=== PATIENT | male | born 1980 | race Two or more races ===

== ENCOUNTER 2020-11-14 12:08 | Emergency (ER) | payer SELFPAY ==
[~2020-11-14] VITALS: Ht 157.5 cm; Wt 68.0 kg
[2020-11-14 14:03] VITALS: BP 127/80
[2020-11-14 14:59] LABS: BASO # 0.1 x10^3/uL (0.0-0.2); BASO % 1 % (0-3); EOS # 0.1 x10^3/uL (0.0-0.7); EOS % 2 % (0-3); HEMATOCRIT 46.1 % (39.0-53.0); HEMOGLOBIN 16.1 g/dL (13.0-17.5); LYMPH # 1.9 x10^3/uL (1.0-4.8); LYMPH % 24 % (24-48); MEAN CORPUSCULAR HEMOGLOBIN 30 pg (25-35); MEAN CORPUSCULAR HGB CONC 35 g/dL (31-37); MEAN CORPUSCULAR VOLUME 87 fL (79-100); MONO # 0.8 x10^3/uL (0.0-1.1); MONO % 10 % (0-9); NEUT # 4.9 x10^3/uL (1.8-7.7); NEUT % 63 % (31-73); PLATELET COUNT 373 x10^3/uL (140-400); RED BLOOD COUNT 5.33 x10^6/uL (4.30-5.70); RED CELL DISTRIBUTION WIDTH 13.6 % (11.5-14.5); WHITE BLOOD COUNT 7.8 x10^3/uL (4.0-11.0)
[2020-11-14 15:05] LABS: CREATININE 0.8 mg/dL (0.7-1.3); GFR 106.5; POTASSIUM 4.3 mmol/L (3.5-5.1)
[2020-11-14 15:10] LABS: ALBUMIN 4.3 g/dL (3.4-5.0); TOTAL BILIRUBIN 0.7 mg/dL (0.2-1.0); TOTAL PROTEIN 8.6 g/dL (6.4-8.2)
--- NOTE | 2020-11-14 16:11 | PHYS DOC ---
Past Medical History Past Medical History: No Pertinent History (LUDWIG BOLTON APRN) Past Surgical History: No Surgical History (LUDWIG BOLTON APRN) Smoking Status: Never Smoker Alcohol Use: None (LUDWIG BOLTON APRN) General Adult EDM: Chief Complaint: WEAKNESS/GENERALIZED HPI: HPI: Patient is a 40 year old male with no significant medical history who presents to the ED today requesting lab work. Patient states he has had generalized weakness and fatigue for 2 weeks. He states he does a job where he wakes up at 3 AM every morning and typically gets tired and feels weak by the end of the day. Denies any fever, coughing, congestion, chest pain, shortness of breath, headache. He also reports stress at work Patient is Micronesian-speaking and interpretation is provided by the language line. (LUDWIG BOLTON APRN) Review of Systems: Review of Systems: Constitutional: Denies fever or chills. [] Eyes: Denies change in visual acuity. [] HENT: Denies nasal congestion or sore throat. [] Respiratory: Denies cough or shortness of breath. [] Cardiovascular: Denies chest pain or edema. [] GI: Denies abdominal pain, nausea, vomiting, bloody stools or diarrhea. [] : Denies dysuria. [] Musculoskeletal: Denies back pain or joint pain. [] Integument: Denies rash. [] Neurologic: Reports generalized weakness and fatigue. Denies headache, focal weakness or sensory changes. [] Psychiatric: Denies depression or anxiety. [] (LUDWIG BOLTON APRN) Heart Score: Risk Factors: Risk Factors: DM, Current or recent (<one month) smoker, HTN, HLP, family h istory of CAD, obesity. Risk Scores: Score 0 - 3: 2.5% MACE over next 6 weeks - Discharge Home Score 4 - 6: 20.3% MACE over next 6 weeks - Admit for Clinical Observation Score 7 - 10: 72.7% MACE over next 6 weeks - Early Invasive Strategies (LUDWIG BOLTON APRN) Allergies: Allergies: Allergies Coded Allergies Type Severity Reaction Last Updated Verified No Known Drug Allergies 11/14/20 No (LUDWIG BOLTON APRN) Physical Exam: PE: Constitutional: Well developed, well nourished, no acute distress, non-toxic appearance. [] HENT: Normocephalic, atraumatic, bilateral external ears normal, oropharynx moist, no oral exudates, nose normal. [] Eyes: PERRLA, EOMI, conjunctiva normal, no discharge. [] Neck: Normal range of motion, no tenderness, supple, no stridor. [] Cardiovascular:Heart rate regular rhythm, no murmur [] Lungs & Thorax: Bilateral breath sounds clear to auscultation [] Abdomen: Bowel sounds normal, soft, no tenderness, no masses, no pulsatile masses. [] Skin: Warm, dry, no erythema, no rash. [] Back: No tenderness, no CVA tenderness. [] Extremities: No tenderness, no cyanosis, no clubbing, ROM intact, no edema. [] Neurologic: Alert and oriented X 3, normal motor function, normal sensory fun ction, no focal deficits noted. Cranial nerves II through XII intact Psychologic: Affect normal, judgement normal, mood normal. [] (LUDWIG BOLTON APRN) Current Patient Data: Labs: Laboratory Tests Test 11/14/20 14:35 White Blood Count 7.8 x10^3/uL (4.0-11.0) Red Blood Count 5.33 x10^6/uL (4.30-5.70) Hemoglobin 16.1 g/dL (13.0-17.5) Hematocrit 46.1 % (39.0-53.0) Mean Corpuscular Volume 87 fL (79-100) Mean Corpuscular Hemoglobin 30 pg (25-35) Mean Corpuscular Hemoglobin Concent 35 g/dL (31-37) Red Cell Distribution Width 13.6 % (11.5-14.5) Platelet Count 373 x10^3/uL (140-400) Neutrophils (%) (Auto) 63 % (31-73) Lymphocytes (%) (Auto) 24 % (24-48) Monocytes (%) (Auto) 10 % (0-9) H Eosinophils (%) (Auto) 2 % (0-3) Basophils (%) (Auto) 1 % (0-3) Neutrophils # (Auto) 4.9 x10^3/uL (1.8-7.7) Lymphocytes # (Auto) 1.9 x10^3/uL (1.0-4.8) Monocytes # (Auto) 0.8 x10^3/uL (0.0-1.1) Eosinophils # (Auto) 0.1 x10^3/uL (0.0-0.7) Basophils # (Auto) 0.1 x10^3/uL (0.0-0.2) Sodium Level 139 mmol/L (136-145) Potassium Level 4.3 mmol/L (3.5-5.1) Chloride Level 102 mmol/L (98-107) Carbon Dioxide Level 29 mmol/L (21-32) Anion Gap 8 (6-14) Blood Urea Nitrogen 12 mg/dL (8-26) Creatinine 0.8 mg/dL (0.7-1.3) Estimated GFR (Cockcroft-Gault) 106.5 BUN/Creatinine Ratio 15 (6-20) Glucose Level 92 mg/dL (70-99) Calcium Level 9.0 mg/dL (8.5-10.1) Total Bilirubin 0.7 mg/dL (0.2-1.0) Aspartate Amino Transferase (AST) 33 U/L (15-37) Alanine Aminotransferase (ALT) 77 U/L (16-63) H Alkaline Phosphatase 118 U/L (46-116) H Total Protein 8.6 g/dL (6.4-8.2) H Albumin 4.3 g/dL (3.4-5.0) Albumin/Globulin Ratio 1.0 (1.0-1.7) Laboratory Tests 11/14/20 14:35 Laboratory Tests 11/14/20 14:35 Vital Signs: Vital Signs Date Time Temp Pulse Resp B/P (MAP) Pulse Ox O2 Delivery O2 Flow Rate FiO2 11/14/20 14:03 98.5 64 127/80 (96) 100 Room Air 98.5 11/14/20 13:10 18 (LUDWIG BOLTON APRN) EKG: EKG: [] (LUDWIG BOLTON APRN) Radiology/Procedures: Radiology/Procedures: [] (LUDWIG BOLTON APRN) Course & Med Decision Making: Course & Med Decision Making Pertinent Labs and Imaging studies reviewed. (See chart for details) This is a 40-year-old male patient presenting to the ED today with generalized weakness and fatigue for 2 weeks. He states he has a lot of stress. Patient reports waking up at 3 AM for work and this makes him very tired. He is very insistent on having lab work done, he states he believes the lab work will diagnose his symptoms. CBC, CMP with nothing really acute, ALT 77, ALK 118. Patient denies any abdominal pain or tenderness on exam. Patient denies any alcohol use. Patient was tested for COVID-19. Language line was used during his visit Recommended he tries to rest especially after work. Recommended following up with PCP. Provided return precautions and discharged in stable condition. (LUDWIG BOLTON APRN) Dragon Disclaimer: Dragon Disclaimer: This electronic medical record was generated, in whole or in part, using a voice recognition dictation system. (LUDWIG BOLTON APRN) Departure Departure Impression: Primary Impression: Fatigue Qualified Codes: R53.83 - Other fatigue Additional Impressions: Weakness Stress Disposition: 01 DC HOME SELF CARE/HOMELESS Condition: STABLE Referrals: NO PCP (PCP) follow up with your doctor in one week Patient Instructions: Chronic Fatigue Syndrome Additional Instructions: You were evaluated in the emergency room. Your work-up was negative for any acute findings. Follow-up with your own doctor in 1 to 2 weeks. Consider resting. Attending Signature Attending Signature I have reviewed the PA/SECURITY SPECIALIST's note and plan of care. I was available for consultation as needed during the patient's visit in the emergency department. I agree with the clinical impression, plan, and disposition. (SHAHRZAD JOHNSON DO) LUDWIG BOLTON APRN Nov 14, 2020 16:11 SHAHRZAD JOHNSON DO Nov 14, 2020 18:55
--- NOTE | 2020-11-16 10:24 | NUR ---
IP: Attempted to contact pt concerning COVID results. No answer. Left a voicemail to return the call.
--- NOTE | 2020-11-17 11:50 | NUR ---
IP: Second attempt made to contact pt concerning COVID results. Left al voicemail to return the call.
== END 2020-11-14 16:10 | disposition home or self-care (01) ==
LOC: ER 12:08
DX: R53.83 Other fatigue (principal); R53.1 Weakness; F43.9 Reaction to severe stress, unspecified; Z20.828 Contact with and (suspected) exposure to other viral communicable diseases
CPT/HCPCS: 36415; 80053; 85025; 99283; C9803; U0003